=== PATIENT | female | born 1980 | race Caucasian/White ===

== ENCOUNTER 2023-10-23 21:48 | Emergency (ER) | payer OTHER, SELFPAY ==
[2023-10-23 21:49] VITALS: BP 160/117; PULSE 97; RESP 16; TEMP 36.6; O2SAT 99
--- NOTE | 2023-10-23 22:13 | ED.URI ---
HPI - URI/Sore Throat General Chief Complaint: Upper Respiratory Infection Stated Complaint: sore throat Time Seen by Provider: 10/23/23 22:03 History of Present Illness HPI Narrative: 42-year-old female presents emergency department for sore throat and neck pain on the left anterior neck x1 and half to 2 months. Patient states she felt fevers a couple days ago, however did not check her temperature. States sometimes she it is more painful to swallow. She admits to smoking. Reports intermittent left ear pain but denies current ear pain, nausea or vomiting. States she has known poor dentition but denies current dental pain. Patient states she was visiting a family member upstairs when she decided to come to the ER to be evaluated. Patient also found to be hypertensive upon arrival at 160/117. She denies signs or symptoms of hypertensive emergency Including chest pain, shortness of breath vision changes. She is not being treated for hypertension and is not established with a PCP. Related Data Allergies Allergy/AdvReac Type Severity Reaction Status Date / Time vancomycin Allergy Severe RED MAN Verified 12/19/18 10:27 SYNDROME peas Allergy Unknown Verified 11/20/18 12:37 sertraline Allergy Unknown Verified 11/20/18 12:37 Review of Systems Review of Systems: CONSTITUTIONAL: Denies fever, chills, or sweats. EYES: Denies visual changes, redness, or discharge. ENT: See HPI CARDIOVASCULAR: Denies chest pain, palpitations, or edema. RESPIRATORY: Denies cough or dyspnea. GASTROINTESTINAL: Denies abdominal pain, nausea, vomiting, or diarrhea. GENITOURINARY: Denies dysuria or hematuria. SKIN: Denies rash or itching. MUSCULOSKELETAL: Denies back pain, joint pain, or myalgia. NEUROLOGIC: Denies headache, numbness, or weakness. PSYCHIATRIC: Denies anxiety or depression. PMFSH Family History Family History Father Hypertension Mother Family history of malignant neoplasm Other Diabetes mellitus Family history of allergic disorder Family history of mental disorder Social History Social History Smoking status: Current every day smoker Alcohol intake: current Exam Narrative: GENERAL: Well-appearing, well-nourished, and in no acute distress. HEAD: Normocephalic, atraumatic. EYES: PERRLA and EOMI. ENT: Nares clear, no rhinorrhea or epistaxis. Mucous membranes moist. Poor dentition/caries throughout. No evidence of periapical abscess or dental abscess. Posterior pharynx without erythema or edema. No tonsillar hypertrophy or exudates. Uvula is midline. There is a left tender anterior cervical lymph node that is firm to palpation, no fluctuance, superficial erythema or edema. She is tolerating secretions, no airway compromise. No trismus. NECK: Supple. CHEST: Clear to auscultation. No respiratory distress. HEART: Regular rate and rhythm. No murmur heard. Normal peripheral pulses. EXTREMITIES: Normal range of motion. No edema. SKIN: Warm, dry, no rash. NEURO: No focal deficits. Alert and oriented x3 Course Vital Signs Vital signs: Vital Signs Temperature 98 F 10/23/23 21:49 Pulse Rate 97 10/23/23 21:49 Respiratory Rate 16 10/23/23 21:49 Blood Pressure 160/117 H 10/23/23 21:49 Pulse Oximetry 99 10/23/23 21:49 Oxygen Delivery Room Air 10/23/23 21:49 Temperature 98 F 10/23/23 21:49 Pulse Rate 97 10/23/23 21:49 Respiratory Rate 16 10/23/23 21:49 Blood Pressure 160/117 H 10/23/23 21:49 Pulse Oximetry 99 10/23/23 21:49 Oxygen Delivery Room Air 10/23/23 22:22 MDM - URI/Sore Throat MDM Narrative Medical decision making narrative: 42-year-old female presents to emergency department for a sore throat and pain to the left anterior neck x2 months. See HPI for further history. Triage vital significant for blood pressure 160/117, sh
[2023-10-23 23:05] LABS: Strep Group A RT-PCR NOT DETECTED (Negative)
[2023-10-23 23:17] LABS: Influenza A QL RT-PCR Negative (Negative); Influenza B QL RT-PCR Negative (Negative); RSV RNA, RT-PCR Negative (Negative); SARS-CoV-2 RNA PCR Negative (Negative)
[2023-10-23] MEDS: AMOXICILLIN/CLAVULANATE K 875-125 MG TAB 1 TABLET PO (23:34)
== END 2023-10-23 23:37 | disposition home or self-care (01) ==
LOC: ANHED 22:29
PROVIDERS: Emergency Provider Physician Assistant; PCP Family Medicine
DX: I88.9 Nonspecific lymphadenitis, unspecified (principal); R03.0 Elevated blood-pressure reading, without diagnosis of hypertension; Z20.822 Contact with and (suspected) exposure to COVID-19; F17.200 Nicotine dependence, unspecified, uncomplicated
CPT/HCPCS: 87637; 87651; 99283; A9270

== ENCOUNTER 2024-02-18 17:53 | Emergency (ER) | payer OTHER, SELFPAY ==
--- NOTE | ~2024-02-18 | CT_ITS ---
EXAMINATION: CT abdomen pelvis w con DATE: 02/18/2024 23:47 INDICATION: Left lower quadrant abdominal pain. TECHNIQUE: Computed tomography (CT) of the abdomen and pelvis was performed with 100 mL Omnipaque 350 intravenous contrast. Automated exposure control and iterative reconstruction technique were employe d. The dose-length product was 649.56 mGy-cm. COMPARISON: None. FINDINGS: The visualized portions of the lung bases demonstrate mild atelectasis. No pleural effusion . The heart size is normal. No pericardial effusion. The liver is normal. There are changes of cholec ystectomy. Calcifications in the spleen are consistent with old granulomatous disease. The pancreas a nd adrenal glands are normal. There is cortical thinning of the kidneys. There is a 12 mm cyst in lef t kidney. There are no dilated loops of bowel. The appendix is normal. There are no pathologically en larged lymph nodes. There is no free intraperitoneal fluid. There is old fat necrosis in the right an terior abdomen subcutaneous fat. There is mild thoracic and lumbar spondylosis. IMPRESSION: 1. No etiology for the patient's symptoms. Reviewed, dictated and finalized at location E.
[2024-02-18 18:15] VITALS: BP 170/95; PULSE 85; RESP 20; TEMP 36.5; O2SAT 99
[2024-02-18 21:28] LABS: Basophils Absolute Auto 0.1 K/mm3 (0.0-0.1); Basophils Percent Auto 0.6 % (0.2-1.2); Eosinophils Absolute Auto 0.2 K/mm3 (0-0.3); Eosinophils Percent Auto 2.3 % (0-4.4); Hematocrit 46.3 % (37.0-47.0); Hemoglobin 14.5 g/dL (12.0-15.0); Immature Granulocyte Absolute 0.03 K/mm3 (0.00-0.031); Immature Granulocyte Percent A 0.4 % (0-0.5); Lymphocytes Absolute Auto 2.62 K/mm3 (0.9-3.2); Lymphocytes Percent Auto 33.9 % (18.3-44.2); Mean Corpuscular HGB Conc 31.3 g/dl (32-36); Mean Corpuscular Hemoglobin 25.6 pg (26-34); Mean Corpuscular Volume 81.8 fl (80-100); Monocytes Absolute Auto 0.9 K/mm3 (0.1-0.6); Neutrophils Absolute Auto 3.9 K/mm3 (1.3-6.7); Neutrophils Percent Auto 50.8 % (45.5-73.1); Platelet Count Result 261 k/mm3 (150-375); Red Blood Count 5.66 M/mm3 (4.2-5.4); Red Cell Distribution Width 15.1 % (11.5-14.5); White Blood Count 7.7 K/mm3 (4.5-10.0)
[2024-02-18 21:37] VITALS: BP 153/90; PULSE 76; RESP 18; O2SAT 99
[2024-02-18 21:40] LABS: Alanine Aminotransferase 30 U/L (6-35); Albumin Level 3.2 g/dL (3.5-5.1); Alkaline Phosphatase 73 U/L (38-126); Anion Gap 7 mmol/L (4-12); Aspartate Amino Transferase 29 U/L (14-36); Bilirubin,Total 0.3 mg/dL (0.2-1.3); Blood Urea Nitrogen 13 mg/dL (7-17); Calcium 8.3 mg/dL (8.4-10.2); Carbon Dioxide 28 mmol/L (22-30); Chloride 101 mmol/L (98-107); Estimated CRCL calculation 63 ml/min; Estimated Glomerular Filt Rate 54; Glucose 100 mg/dL (65-110); Lipase 70 U/L (23-300); Potassium 4.1 mmol/L (3.4-5.0); Sodium 136 mmol/L (137-145)
[2024-02-18 23:38] LABS: BEDSIDEPREGUCG Negative
[2024-02-19 01:49] VITALS: BP 166/93; PULSE 89; RESP 18; O2SAT 99
[2024-02-19] MEDS: KETOROLAC 15 MG/ML VIAL (*BKC) IV PUSH (01:49)
--- NOTE | 2024-02-19 03:56 | ED.ABDPAIN ---
HPI - Abdominal Pain General Chief Complaint: Abdominal Pain Stated Complaint: abd pain Time Seen by Provider: 02/18/24 21:10 History of Present Illness HPI narrative: Patient presenting with left lower abdominal pain, nausea, has been ongoing for at least a week, went to an outside hospital and they did not work her up for this. Related Data Allergies Allergy/AdvReac Type Severity Reaction Status Date / Time vancomycin Allergy Severe RED MAN Verified 02/18/24 21:38 SYNDROME peas Allergy Unknown Unknown Verified 02/18/24 21:38 sertraline Allergy Unknown Unknown Verified 02/18/24 21:38 Review of Systems Review of Systems: All systems reviewed & are unremarkable except as noted in HPI and below PMFSH Family History Family History Father Hypertension Mother Family history of malignant neoplasm Other Diabetes mellitus Family history of allergic disorder Family history of mental disorder Social History Social History Smoking status: Current every day smoker Alcohol intake: current Exam Narrative: EXAMINATION OF ORGAN SYSTEMS/BODY AREAS: Constitutional: Vital signs per nursing GENERAL:[No acute distress, non-toxic appearing.] HEAD: Normal with no signs of head trauma. EYES: EOMI, conjunctiva normal ENT: Hearing grossly intact LUNGS: Nonlabored breathing. HEART: [Regular rate and rhythm] ABD: [Soft], slightly [tender to palpation] left lower quadrant EXT: Normal range of motion SKIN: [No rashes or lesions.] NEURO: [Alert and oriented x 3. No gross focal sensory or strength deficits.] PSYCH: Normal affect Course Vital Signs Vital signs: Vital Signs Temperature 97.7 F 02/18/24 18:15 Pulse Rate 85 02/18/24 18:15 Respiratory Rate 20 02/18/24 18:15 Blood Pressure 170/95 H 02/18/24 18:15 Pulse Oximetry 99 02/18/24 18:15 Oxygen Delivery Room Air 02/18/24 18:15 Temperature 97.7 F 02/18/24 18:15 Pulse Rate 89 02/19/24 01:49 Respiratory Rate 18 02/19/24 01:49 Blood Pressure 166/93 H 02/19/24 01:49 Pulse Oximetry 99 02/19/24 01:49 Oxygen Delivery Room Air 02/18/24 18:15 MDM - Abdominal Pain MDM Narrative Medical decision making narrative: 43-year-old female presenting with left lower quadrant pain, nausea vomiting, no dysuria, on exam she is well-appearing with some slight tenderness to left lower abdomen, labs within acceptable limits, CT shows left ovarian cyst which I suspect is causing his symptoms patient states she has had them before, I will have her follow-up to OBGYN for further evaluation she can return for any further issues. She is given Toradol here for pain and they did help her symptoms Lab Data 02/18/24 21:15 02/18/24 21:15 Labs: Lab Results 02/18/24 02/18/24 Range/Units 21:15 23:36 WBC 7.7 (4.5-10.0) K/mm3 RBC 5.66 H (4.2-5.4) M/mm3 Hgb 14.5 (12.0-15.0) g/dL Hct 46.3 (37.0-47.0) % MCV 81.8 (80-100) fl MCH 25.6 L (26-34) pg MCHC 31.3 L (32-36) g/dl RDW 15.1 H (11.5-14.5) % Plt Count 261 (150-375) k/mm3 MPV 11.0 H (7.4-10.4) fl Immature Gran % (Auto) 0.4 (0-0.5) % Neut % (Auto) 50.8 (45.5-73.1) % Lymph % (Auto) 33.9 (18.3-44.2) % Ferry % (Auto) 12.0 H (2.6-8.5) % Eos % (Auto) 2.3 (0-4.4) % Baso % (Auto) 0.6 (0.2-1.2) % Lymph # (Auto) 2.62 (0.9-3.2) K/mm3 Ferry # (Auto) 0.9 H (0.1-0.6) K/mm3 Eos # (Auto) 0.2 (0-0.3) K/mm3 Baso # (Auto) 0.1 (0.0-0.1) K/mm3 Abs Immat Gran (auto) 0.03 (0.00-0.031) K/mm3 Absolute Neuts (auto) 3.9 (1.3-6.7) K/mm3 Absolute Nucleated RBC 0.000 (0.0-0.012) K/mm3 Nucleated RBC % 0.0 (0.0-0.2) % Sodium 136 L (137-145) mmol/L Potassium 4.1 (3.4-5.0) mmol/L Chloride 101 (98-107) mmol/L Carbon Dioxide 28 (22-30) mmol/L Anion Gap 7 (4-12) mmol/
== END 2024-02-19 02:33 | disposition home or self-care (01) ==
PROVIDERS: Emergency Provider Emergency Medicine
DX: N83.202 Unspecified ovarian cyst, left side (principal); F17.200 Nicotine dependence, unspecified, uncomplicated
CPT/HCPCS: 36415; 74177; 80053; 81025; 83690; 85025; 96374; 99284; J1885; Q9967